=== PATIENT | female | born 1955 | race Caucasian/White ===

== ENCOUNTER 2018-01-22 13:05 | Inpatient (IN) ==
[2018-01-22] MEDS ORDERED: ALBUTEROL/IPRATROPIUM 3 ML NEB RESP TX STA (13:23)
[2018-01-22] MEDS ORDERED: ONDANSETRON 4 MG/2 ML VIAL IV STA (13:23)
[2018-01-22] MEDS ORDERED: SODIUM CHLORIDE 0.9% 1,000 ML IV STA (13:23)
[2018-01-22] MEDS ORDERED: methylPREDNISolone SOD SUC 125 MG/2 ML VIAL IV STA (13:23)
[2018-01-22 13:58] LABS: ABG Base Excess -7.2 MMOL/L (-2.5-2.5); ABG HCO3 18.5 MMOL/L (20-26); ABG Oxygen Saturation 92.6 % (95-100); ABG PCO2 59.3 MM HG (35-48); ABG PO2 73.6 MM HG (80-95); ABG TCO2 20.4 MMOL/L (23-27)
[2018-01-22 14:00] LABS: ABG PH 7.182 (7.35-7.45)
[2018-01-22] MEDS ORDERED: SODIUM BICARBONATE 50 MEQ/50 ML VIAL IV STA ×2 (14:08)
[2018-01-22 14:12] LABS: Basophils % 0.1 % (0.0-0.8); Hematocrit 38.9 VOL% (35.7-47.0); Hemoglobin 12.4 GM/DL (12.0-16.0); Immature Granulocytes % 1.1 %; Immature Granulocytes Absolute 0.12 #; Lymphocytes # 0.6 10*3/uL (1.4-4.0); Lymphocytes % 5.2 % (21.3-54.2); Mean Corpuscular HGB Conc 31.9 GM/DL (32-36); Mean Corpuscular Hemoglobin 32 PG (27-34); Mean Corpuscular Volume 100.3 FL (87-102); Mean Platelet Volume 11.7 FL (9.6-12.0); Monocytes # 0.6 10*3/uL (0.11-0.8); Neutrophils # 9.3 10*3/uL (1.4-7.4); Neutrophils % 87.6 % (38.7-73.9); Platelet Count 143 T/CUMM (130-400); Red Blood Count 3.88 MC/CUMM (3.8-5.5); Red Cell Distribution Width 12.5 % (9.3-17.3); White Blood Count 10.7 T/CUMM (4-12)
[2018-01-22 14:35] LABS: Acetaminophen < 2.0 UG/ML (10-30); Salicylate 3.9 MG/DL (2.8-20)
[2018-01-22 14:39] LABS: Lactic Acid 2.3 MMOL/L (0.4-2.0)
[2018-01-22 14:40] LABS: Alanine Aminotransferase 74 U/L (13-56); Albumin 3.4 G/DL (3.4-5.0); Alkaline Phosphatase 136 U/L (45-117); Aspartate Amino Transferase 112 U/L (0-37); Blood Urea Nitrogen 22 MG/DL (7-18); CKMB % 5.7 %; Calcium 7.8 MG/DL (8.5-10.1); Glucose 71 MG/DL (74-106); Osmolality,Calculated 281.3 MOS/KG (273-304); Potassium 4.5 MMOL/L (3.5-5.1); Sodium 141 MMOL/L (136-145); Total Protein 6.9 G/DL (6.4-8.3)
[2018-01-22] MEDS ORDERED: FUROSEMIDE 40 MG/4 ML VIAL IV STA (15:20)
[2018-01-22] MEDS ORDERED: DEXTROSE 50% 25 GM/50 ML VIAL IV STA (15:21)
[2018-01-22] MEDS ORDERED: DEXTROSE 50% 25 GM/50 ML SYRINGE IV ONE (15:41)
[2018-01-22] MEDS ORDERED: ALBUTEROL 2.5 MG/3 ML NEB RESP TX PRN (16:10)
[2018-01-22] MEDS ORDERED: ONDANSETRON 4 MG/2 ML VIAL IV PRN (16:10)
[2018-01-22] MEDS ORDERED: NALOXONE 0.4 MG/ML VIAL IV PRN (16:15)
[2018-01-22] MEDS ORDERED: DEXTROSE 50% 25 GM/50 ML VIAL IV PRN (16:17)
[2018-01-22] MEDS ORDERED: ENOXAPARIN 40 MG/0.4 ML SYRINGE SUBCUT SCH (16:30)
[2018-01-22] MEDS ORDERED: PANTOPRAZOLE 40 MG VIAL IV SCH (16:30)
[2018-01-22 17:06] LABS: Apearance,Urine CLEAR (Clear); Bacteria,Urine Occasional /HPF (Few); Bilirubin,Urine Negative (Negative); Blood, Urine Negative (Negative); Glucose,Urine (UA) Negative (Negative); Ketones,Urine Negative (Negative); Mucus,Urine Occasional /LPF (Occasional); Nitrite,Urine Negative (Negative); Protein,Urine Negative; RBC,Urine <1 /HPF (0-4); Squamous Epithelial Cell,Urine Occasional /HPF (0-10); Urine Color Straw (Yellow); Urine Specific Gravity 1.005 (1.001-1.035); Urine Urobilinogen < 2.0 EU/DL (0.2-1.0); WBC,Urine 1 /HPF (0-6)
[2018-01-22 17:14] LABS: Barbiturates Screen,Urine Negative (Negative); Benzodiazepines Screen,Urine Negative (Negative); Cannabinoid Screen,Urine Positive (Negative); Opiate Screen,Urine Positive (Negative); Phencyclidine Screen,Urine Negative (Negative)
[2018-01-22] MEDS: GABAPENTIN 400 MG CAPSULE PO SCH (20:29)
[2018-01-23 01:37] LABS: Albumin 3.5 G/DL (3.4-5.0); Bilirubin,Total 0.5 MG/DL (0.2-1.0); Calcium 8.1 MG/DL (8.5-10.1); Osmolality,Calculated 282.4 MOS/KG (273-304); Potassium 5.2 MMOL/L (3.5-5.1); Total Protein 6.9 G/DL (6.4-8.3)
[2018-01-23] MEDS: GABAPENTIN 400 MG CAPSULE PO SCH (08:48)
[2018-01-23] MEDS ORDERED: VENLAFAXINE 100 MG TABLET PO SCH (09:00)
[2018-01-23] MEDS ORDERED: CITALOPRAM 40 MG TABLET PO SCH (09:00)
[2018-01-23] MEDS ORDERED: ATORVASTATIN 40 MG TABLET PO SCH (09:00)
[2018-01-23] MEDS ORDERED: MONTELUKAST 10 MG TABLET PO SCH (09:00)
[2018-01-23 09:41] VITALS: BP 117/68
== END 2018-01-23 12:54 | disposition home or self-care (01) | DRG 917 ==
LOC: EDUNIT# → N.ED 13:05 → N.EDINP 16:10 → N.CC 16:57
PROVIDERS: ADMIT Internal Medicine; ATTEND Internal Medicine

== ENCOUNTER 2021-04-01 20:49 | Inpatient (IN) ==
[2021-04-01] MEDS ORDERED: ACETAMINOPHEN 500 MG TABLET PO STA (21:46)
[2021-04-01] MEDS ORDERED: SODIUM CHLORIDE 0.9% 1,000 ML IV STA (21:49)
[2021-04-01 21:53] LABS: Basophils # 0.1 10*3/uL (0.0-0.2); Basophils % 0.6 % (0.0-0.8); Eosinophils # 0.1 10*3/uL (0.0-0.87); Eosinophils % 0.6 % (0.00-10.9); Hematocrit 33.1 VOL% (35.7-47.0); Hemoglobin 10.2 GM/DL (12.0-16.0); Immature Granulocytes % 0.9 %; Immature Granulocytes Absolute 0.16 #; Lymphocytes % 16.3 % (21.3-54.2); Mean Corpuscular HGB Conc 30.8 GM/DL (32-36); Mean Corpuscular Volume 100.9 FL (87-102); Mean Platelet Volume 11.9 FL (9.6-12.0); Neutrophils % 76.6 % (38.7-73.9); Platelet Count 296 T/CUMM (130-400); Red Blood Count 3.28 MC/CUMM (3.8-5.5); Red Cell Distribution Width 13.8 % (9.3-17.3); White Blood Count 18.6 T/CUMM (4-12)
[2021-04-01] MEDS ORDERED: PANTOPRAZOLE 40 MG VIAL IV STA (21:56)
[2021-04-01 22:13] LABS: Bilirubin,Total 0.6 MG/DL (0.20-1.00); Calcium 8.6 MG/DL (8.5-10.1); Osmolality,Calculated 296.8 MOS/KG (273-304); Potassium 4.3 MMOL/L (3.5-5.1); Total Protein 6.1 G/DL (6.4-8.2)
[2021-04-01 22:16] LABS: PT Patient Result 11.5 SECS (10.5-12.0)
[2021-04-01 22:22] LABS: Partial Thromboplastin Time < 20.0 SECS (23.9-33.8)
[2021-04-01] MEDS ORDERED: MORPHINE 2 MG/1 ML SYRINGE IV STA (23:24)
[2021-04-01] MEDS ORDERED: PROMETHAZINE 25 MG TABLET PO STA (23:24)
[2021-04-02] MEDS ORDERED: PIPERACILLIN/TAZOBACTAM 3,375 MG in SODIUM CHLORIDE 0.9% 100 ML IV STA (00:50)
[2021-04-02] MEDS ORDERED: CIPROFLOXACIN INJ 400 MG/200 ML PREMIX IV SCH (01:00)
[2021-04-02] MEDS ORDERED: metroNIDAZOLE INJ 500 MG/100 ML PREMIX IV SCH (01:00)
[2021-04-02 01:24] LABS: Hematocrit 27.1 VOL% (35.7-47.0); Hemoglobin 8.5 GM/DL (12.0-16.0)
[2021-04-02] MEDS ORDERED: HYDROmorphone 2 MG/1 ML VIAL IV STA (02:34)
[2021-04-02] MEDS ORDERED: ONDANSETRON 4 MG/2 ML VIAL IV STA (02:35)
[2021-04-02] MEDS ORDERED: HYDROmorphone 2 MG/1 ML VIAL ONE (02:36)
[2021-04-02] MEDS ORDERED: ONDANSETRON 4 MG/2 ML VIAL ONE (02:36)
[2021-04-02] MEDS ORDERED: SODIUM CHLORIDE 0.9% 1,000 ML IV PRN (03:10)
[2021-04-02] MEDS ORDERED: DEXTROSE 50% 25 GM/50 ML VIAL IV PRN (03:16)
[2021-04-02] MEDS ORDERED: GLUCAGON 1 MG VIAL IM PRN (03:16)
[2021-04-02] MEDS: SODIUM CHLORIDE 0.9% 1,000 ML IV SCH (03:24)
[2021-04-02] MEDS: PANTOPRAZOLE INJ 200 MG in SODIUM CHLORIDE 0.9% 250 ML IV SCH (03:25)
[2021-04-02 04:31] LABS: Basophils % 0.4 % (0.0-0.8); Eosinophils % 0.4 % (0.00-10.9); Hematocrit 24.1 VOL% (35.7-47.0); Hemoglobin 7.4 GM/DL (12.0-16.0); Immature Granulocytes % 0.6 %; Immature Granulocytes Absolute 0.05 #; Lymphocytes # 1.8 10*3/uL (1.4-4.0); Lymphocytes % 21.2 % (21.3-54.2); Mean Corpuscular HGB Conc 30.7 GM/DL (32-36); Mean Corpuscular Volume 101.7 FL (87-102); Mean Platelet Volume 11.3 FL (9.6-12.0); Neutrophils % 71.4 % (38.7-73.9); Red Cell Distribution Width 13.6 % (9.3-17.3)
[2021-04-02 04:32] LABS: Red Blood Count 2.37 MC/CUMM (3.8-5.5); White Blood Count 8.4 T/CUMM (4-12)
[2021-04-02 04:33] LABS: Platelet Count 196 T/CUMM (130-400)
[2021-04-02 04:53] LABS: Albumin 2.4 G/DL (3.4-5.0); Bilirubin,Total 0.7 MG/DL (0.20-1.00); Calcium 7.1 MG/DL (8.5-10.1); Osmolality,Calculated 294.8 MOS/KG (273-304); Potassium 4.1 MMOL/L (3.5-5.1)
[2021-04-02] MEDS ORDERED: ALBUTEROL 2.5 MG/3 ML NEB RESP TX PRN ×2 (07:42→15:27)
[2021-04-02] MEDS: LORazepam 2 MG/1 ML VIAL IV PRN ×4 (08:01→20:59)
[2021-04-02] MEDS ORDERED: ACETAMINOPHEN 500 MG TABLET PO ONE (13:27)
[2021-04-02 14:00] LABS: Hematocrit 28.3 VOL% (35.7-47.0); Hemoglobin 9.2 GM/DL (12.0-16.0)
[2021-04-02] MEDS ORDERED: LACTATED RINGERS 1,000 ML IV SCH (14:30)
[2021-04-02] MEDS ORDERED: propofoL 200 MG/20 ML VIAL IV ONE ×3 (14:55→15:41)
[2021-04-02] MEDS ORDERED: LIDOCAINE 2% 5 ML VIAL ONE (14:55)
[2021-04-02] MEDS ORDERED: fentaNYL 100 MCG/2 ML VIAL ONE (15:11)
[2021-04-02] MEDS ORDERED: EPINEPHrine 1 MG/10 ML SYRINGE ONE (15:19)
[2021-04-02] MEDS ORDERED: MIDAZOLAM 2 MG/2 ML VIAL ONE (15:19)
[2021-04-02] MEDS ORDERED: METOCLOPRAMIDE 10 MG/2 ML VIAL ONE (15:20)
[2021-04-02] MEDS: PIPERACILLIN/TAZOBACTAM 3,375 MG in SODIUM CHLORIDE 0.9% 100 ML IV SCH ×2 (15:22→19:10)
[2021-04-02] MEDS ORDERED: FUROSEMIDE 20 MG/2 ML VIAL ONE (15:51)
[2021-04-02] MEDS: ALBUTEROL/IPRATROPIUM 3 ML NEB RESP TX PRN (16:20)
[2021-04-02] MEDS ORDERED: VENLAFAXINE 100 MG TABLET PO SCH (21:00)
[2021-04-02] MEDS: GABAPENTIN 400 MG CAPSULE PO SCH (22:16)
[2021-04-02 22:17] LABS: Hematocrit 27.8 VOL% (35.7-47.0); Hemoglobin 8.8 GM/DL (12.0-16.0)
[2021-04-02] MEDS: ATORVASTATIN 40 MG TABLET PO SCH (22:17)
[2021-04-02] MEDS: MONTELUKAST 10 MG TABLET PO SCH (22:17)
[2021-04-02] MEDS: LOSARTAN 25 MG TABLET PO SCH (22:17)
[2021-04-02] MEDS: carvediloL 6.25 MG TABLET PO SCH (22:17)
[2021-04-03] MEDS: PIPERACILLIN/TAZOBACTAM 3,375 MG in SODIUM CHLORIDE 0.9% 100 ML IV SCH ×3 (01:55→17:44)
[2021-04-03 06:09] LABS: Basophils # 0.1 10*3/uL (0.0-0.2); Basophils % 0.9 % (0.0-0.8); Eosinophils # 0.1 10*3/uL (0.0-0.87); Hematocrit 26.3 VOL% (35.7-47.0); Hemoglobin 8.5 GM/DL (12.0-16.0); Immature Granulocytes % 0.5 %; Immature Granulocytes Absolute 0.03 #; Lymphocytes # 1.6 10*3/uL (1.4-4.0); Lymphocytes % 28.9 % (21.3-54.2); Mean Corpuscular HGB Conc 32.3 GM/DL (32-36); Mean Platelet Volume 11.8 FL (9.6-12.0); Monocytes % 8.2 % (1.7-12.7); Neutrophils % 59.5 % (38.7-73.9); Platelet Count 183 T/CUMM (130-400); Red Blood Count 2.63 MC/CUMM (3.8-5.5); Red Cell Distribution Width 14.5 % (9.3-17.3); White Blood Count 5.6 T/CUMM (4-12)
[2021-04-03 06:40] LABS: Albumin 2.6 G/DL (3.4-5.0); Bilirubin,Total 0.8 MG/DL (0.20-1.00); Calcium 8.2 MG/DL (8.5-10.1); Total Protein 5.6 G/DL (6.4-8.2)
[2021-04-03] MEDS: SODIUM CHLORIDE 0.9% 1,000 ML IV SCH ×5 (09:26→21:53)
[2021-04-03] MEDS: carvediloL 6.25 MG TABLET PO SCH ×2 (09:32→21:51)
[2021-04-03] MEDS: LOSARTAN 25 MG TABLET PO SCH ×2 (09:32→21:52)
[2021-04-03] MEDS: GABAPENTIN 400 MG CAPSULE PO SCH ×3 (09:32→21:00)
[2021-04-03] MEDS: atenoloL 25 MG TABLET PO SCH (09:32)
[2021-04-03] MEDS ORDERED: ACETAMINOPHEN 500 MG TABLET PO ONE (09:38)
[2021-04-03] MEDS: PANTOPRAZOLE INJ 200 MG in SODIUM CHLORIDE 0.9% 250 ML IV SCH (10:40)
[2021-04-03 12:31] LABS: Hematocrit 25.2 VOL% (35.7-47.0); Hemoglobin 8.1 GM/DL (12.0-16.0)
[2021-04-03 12:53] LABS: High Sensitive Troponin I* 4511.7 ng/L (0-54)
[2021-04-03] MEDS ORDERED: SODIUM CHLORIDE 0.9% 500 ML IV ONE (15:59)
[2021-04-03 17:59] LABS: Hematocrit 25.5 VOL% (35.7-47.0); Hemoglobin 8.1 GM/DL (12.0-16.0)
[2021-04-03] MEDS: ATORVASTATIN 40 MG TABLET PO SCH (21:01)
[2021-04-03] MEDS: MONTELUKAST 10 MG TABLET PO SCH (21:01)
[2021-04-03] MEDS: VENLAFAXINE 100 MG TABLET PO SCH (22:14)
[2021-04-04] MEDS: PIPERACILLIN/TAZOBACTAM 3,375 MG in SODIUM CHLORIDE 0.9% 100 ML IV SCH ×3 (00:59→17:27)
[2021-04-04] MEDS: PANTOPRAZOLE INJ 200 MG in SODIUM CHLORIDE 0.9% 250 ML IV SCH (01:06)
[2021-04-04] MEDS: SODIUM CHLORIDE 0.9% 1,000 ML IV SCH ×3 (01:07→18:13)
[2021-04-04 03:03] LABS: Basophils # 0.1 10*3/uL (0.0-0.2); Basophils % 0.9 % (0.0-0.8); Eosinophils # 0.2 10*3/uL (0.0-0.87); Eosinophils % 2.7 % (0.00-10.9); Hematocrit 24.1 VOL% (35.7-47.0); Hemoglobin 7.6 GM/DL (12.0-16.0); Immature Granulocytes % 0.5 %; Immature Granulocytes Absolute 0.03 #; Lymphocytes # 2.2 10*3/uL (1.4-4.0); Mean Corpuscular HGB Conc 31.5 GM/DL (32-36); Mean Corpuscular Volume 97.2 FL (87-102); Mean Platelet Volume 10.9 FL (9.6-12.0); Monocytes % 5.8 % (1.7-12.7); Neutrophils % 50.1 % (38.7-73.9); Platelet Count 148 T/CUMM (130-400); Red Blood Count 2.48 MC/CUMM (3.8-5.5); Red Cell Distribution Width 14.1 % (9.3-17.3); White Blood Count 5.5 T/CUMM (4-12)
[2021-04-04 03:23] LABS: Alanine Aminotransferase 12 U/L (13-56); Albumin 2.7 G/DL (3.4-5.0); Alkaline Phosphatase 66 U/L (45-117); Aspartate Amino Transferase 25 U/L (0-37); Bilirubin,Total < 0.39 MG/DL (0.20-1.00); Blood Urea Nitrogen 14 MG/DL (7-18); Carbon Dioxide 20 MMOL/L (21-32); Estimated Glom Filtration Rate 82 ML/MIN; Glucose 96 MG/DL (74-106); Osmolality,Calculated 281.3 MOS/KG (273-304); Potassium 3.5 MMOL/L (3.5-5.1); Sodium 141 MMOL/L (136-145); Total Protein 5.3 G/DL (6.4-8.2)
[2021-04-04] MEDS: GABAPENTIN 400 MG CAPSULE PO SCH ×3 (08:42→20:14)
[2021-04-04] MEDS: LOSARTAN 25 MG TABLET PO SCH ×2 (08:42→20:45)
[2021-04-04] MEDS: carvediloL 6.25 MG TABLET PO SCH ×2 (11:10→20:45)
[2021-04-04 11:47] LABS: Hematocrit 24.2 VOL% (35.7-47.0); Hemoglobin 7.7 GM/DL (12.0-16.0)
[2021-04-04] MEDS: MONTELUKAST 10 MG TABLET PO SCH (20:14)
[2021-04-04] MEDS: ATORVASTATIN 40 MG TABLET PO SCH (20:14)
[2021-04-04] MEDS: PANTOPRAZOLE 40 MG VIAL IV SCH (20:15)
[2021-04-04] MEDS: VENLAFAXINE 100 MG TABLET PO SCH (20:46)
[2021-04-04] MEDS: ONDANSETRON 4 MG/2 ML VIAL IV PRN (21:55)
[2021-04-05] MEDS: PIPERACILLIN/TAZOBACTAM 3,375 MG in SODIUM CHLORIDE 0.9% 100 ML IV SCH ×3 (00:05→23:00)
[2021-04-05] MEDS ORDERED: SODIUM CHLORIDE 0.9% 1,000 ML IV PRN ×3 (03:24→19:47)
[2021-04-05] MEDS: SODIUM CHLORIDE 0.9% 1,000 ML IV SCH ×3 (03:30→17:46)
[2021-04-05 03:42] LABS: Basophils # 0.1 10*3/uL (0.0-0.2); Basophils % 0.7 % (0.0-0.8); Eosinophils # 0.1 10*3/uL (0.0-0.87); Eosinophils % 1.3 % (0.00-10.9); Hematocrit 20.1 VOL% (35.7-47.0); Immature Granulocytes % 0.8 %; Immature Granulocytes Absolute 0.08 #; Lymphocytes % 18.9 % (21.3-54.2); Mean Corpuscular HGB Conc 28.9 GM/DL (32-36); Mean Corpuscular Volume 109.8 FL (87-102); Mean Platelet Volume 11.3 FL (9.6-12.0); Monocytes % 5.4 % (1.7-12.7); Neutrophils % 72.9 % (38.7-73.9); Platelet Count 193 T/CUMM (130-400); Red Blood Count 1.83 MC/CUMM (3.8-5.5); Red Cell Distribution Width 14.2 % (9.3-17.3); White Blood Count 10.4 T/CUMM (4-12)
[2021-04-05 03:45] LABS: Hemoglobin 5.8 GM/DL (12.0-16.0)
[2021-04-05 03:55] LABS: Calcium 7.3 MG/DL (8.5-10.1); Potassium 4.1 MMOL/L (3.5-5.1)
[2021-04-05] MEDS ORDERED: NOREPINEPHRINE 4 MG/4 ML VIAL IV ONE ×2 (04:31→04:32)
[2021-04-05] MEDS: MORPHINE 2 MG/1 ML SYRINGE IV PRN (05:36)
[2021-04-05] MEDS ORDERED: SODIUM BICARBONATE 50 MEQ/50 ML VIAL IV ONE (06:40)
[2021-04-05] MEDS ORDERED: CALCIUM GLUCONATE 1,000 MG in SODIUM CHLORIDE 0.9% 100 ML IV ONE ×2 (06:40→09:00)
[2021-04-05] MEDS: LORazepam 2 MG/1 ML VIAL IV PRN ×3 (09:29→23:49)
[2021-04-05] MEDS: PANTOPRAZOLE 40 MG VIAL IV SCH (09:43)
[2021-04-05] MEDS: PANTOPRAZOLE INJ 200 MG in SODIUM CHLORIDE 0.9% 250 ML IV SCH (12:42)
[2021-04-05 12:55] LABS: Hematocrit 25.2 VOL% (35.7-47.0); Hemoglobin 8.1 GM/DL (12.0-16.0)
[2021-04-05] MEDS ORDERED: LORazepam 2 MG/1 ML VIAL ONE (13:13)
[2021-04-05] MEDS: atenoloL 25 MG TABLET PO SCH (14:39)
[2021-04-05] MEDS: carvediloL 6.25 MG TABLET PO SCH ×2 (14:39→20:18)
[2021-04-05] MEDS: GABAPENTIN 400 MG CAPSULE PO SCH ×3 (14:39→20:19)
[2021-04-05] MEDS: LOSARTAN 25 MG TABLET PO SCH ×2 (14:39→20:18)
[2021-04-05] MEDS: FLUCONAZOLE INJ 100 MG/50 ML PREMIX IV SCH (16:38)
[2021-04-05 17:18] LABS: Hematocrit 23.3 VOL% (35.7-47.0); Hemoglobin 7.4 GM/DL (12.0-16.0)
[2021-04-05] MEDS ORDERED: FUROSEMIDE 40 MG/4 ML VIAL IV ONE (17:36)
[2021-04-05] MEDS ORDERED: LACTATED RINGERS 1,000 ML IV ONE (19:00)
[2021-04-05] MEDS ORDERED: HEPARIN/NACL 0.9% 2 UNITS/ML 6,000 UNIT/3,000 ML BAG IV ONE (19:55)
[2021-04-05] MEDS: VENLAFAXINE 100 MG TABLET PO SCH (20:18)
[2021-04-05] MEDS: ATORVASTATIN 40 MG TABLET PO SCH (20:19)
[2021-04-05] MEDS: MONTELUKAST 10 MG TABLET PO SCH (20:19)
[2021-04-05] MEDS ORDERED: HEPARIN/NACL 0.9% 2 UNITS/ML 2,000 UNIT/1,000 ML BAG IV ONE ×2 (21:26→21:29)
[2021-04-05] MEDS ORDERED: propofoL 200 MG/20 ML VIAL IV ONE (22:55)
[2021-04-05] MEDS ORDERED: LIDOCAINE 2% 5 ML VIAL ONE (22:55)
[2021-04-05] MEDS ORDERED: PHENYLEPHRINE 1 MG/10 ML SYRINGE IV ONE (22:55)
[2021-04-05] MEDS ORDERED: SODIUM CHLORIDE 0.9% 1,000 ML IV ONE (22:56)
[2021-04-05] MEDS ORDERED: SODIUM CHLORIDE 0.9% 100 ML IV ONE (22:56)
[2021-04-05] MEDS ORDERED: MIDAZOLAM 2 MG/2 ML VIAL ONE (22:56)
[2021-04-05] MEDS ORDERED: KETAMINE 500 MG/10 ML VIAL ONE (22:56)
[2021-04-05] MEDS ORDERED: GLYCOPYRROLATE 0.4 MG/2 ML VIAL ONE (22:56)
[2021-04-05] MEDS ORDERED: FUROSEMIDE 40 MG/4 ML VIAL ONE (23:39)
[2021-04-05 23:56] LABS: Hematocrit 26.9 VOL% (35.7-47.0); Hemoglobin 8.3 GM/DL (12.0-16.0)
[2021-04-06] MEDS: SODIUM CHLORIDE 0.9% 1,000 ML IV SCH (01:40)
[2021-04-06 05:42] LABS: Basophils % 0.4 % (0.0-0.8); Eosinophils # 0.1 10*3/uL (0.0-0.87); Eosinophils % 1.2 % (0.00-10.9); Hematocrit 27.8 VOL% (35.7-47.0); Hemoglobin 9.1 GM/DL (12.0-16.0); Immature Granulocytes % 0.6 %; Immature Granulocytes Absolute 0.05 #; Mean Corpuscular HGB Conc 32.7 GM/DL (32-36); Mean Corpuscular Volume 95.2 FL (87-102); Mean Platelet Volume 11.9 FL (9.6-12.0); Monocytes % 5.7 % (1.7-12.7); NRBC # 0.02 10*3/uL; Neutrophils % 80.1 % (38.7-73.9); Red Cell Distribution Width 14.6 % (9.3-17.3); White Blood Count 8.5 T/CUMM (4-12)
[2021-04-06 05:43] LABS: Platelet Count 112 T/CUMM (130-400); Red Blood Count 2.92 MC/CUMM (3.8-5.5)
[2021-04-06 05:53] LABS: Albumin 2.4 G/DL (3.4-5.0); Bilirubin,Total 0.6 MG/DL (0.20-1.00); Osmolality,Calculated 286.8 MOS/KG (273-304); Potassium 3.5 MMOL/L (3.5-5.1)
[2021-04-06] MEDS: PIPERACILLIN/TAZOBACTAM 3,375 MG in SODIUM CHLORIDE 0.9% 100 ML IV SCH ×2 (06:42→06:43)
[2021-04-06] MEDS ORDERED: LORazepam 2 MG/1 ML VIAL ONE ×2 (08:14→15:59)
[2021-04-06] MEDS: LORazepam 2 MG/1 ML VIAL IV PRN (08:20)
[2021-04-06] MEDS: GABAPENTIN 400 MG CAPSULE PO SCH ×3 (08:34→21:12)
[2021-04-06] MEDS: carvediloL 6.25 MG TABLET PO SCH (08:34)
[2021-04-06] MEDS: atenoloL 25 MG TABLET PO SCH (08:34)
[2021-04-06] MEDS: LOSARTAN 25 MG TABLET PO SCH (08:34)
[2021-04-06] MEDS: MORPHINE 2 MG/1 ML SYRINGE IV PRN (09:54)
[2021-04-06] MEDS: ONDANSETRON 4 MG/2 ML VIAL IV PRN (09:55)
[2021-04-06] MEDS ORDERED: MAGNESIUM SULF RIDER 2 GM/50 ML PREMIX IV PRN (10:53)
[2021-04-06] MEDS ORDERED: MAGNESIUM SULF RIDER 4 GM/100 ML PREMIX IV PRN (10:53)
[2021-04-06] MEDS: LACTATED RINGERS 1,000 ML IV SCH (11:00)
[2021-04-06 11:13] LABS: Hematocrit 22.5 VOL% (35.7-47.0); Hemoglobin 7.5 GM/DL (12.0-16.0)
[2021-04-06] MEDS ORDERED: MIDAZOLAM 2 MG/2 ML VIAL ONE (11:56)
[2021-04-06] MEDS ORDERED: PHENYLEPHRINE 10 MG/1 ML VIAL IV ONE (11:58)
[2021-04-06] MEDS ORDERED: SODIUM CHLORIDE 0.9% 250 ML IV ONE (12:07)
[2021-04-06] MEDS ORDERED: ETOMIDATE 20 MG/10 ML VIAL IV ONE (12:07)
[2021-04-06] MEDS ORDERED: PHENYLEPHRINE 1 MG/10 ML SYRINGE IV ONE (12:07)
[2021-04-06] MEDS ORDERED: propofoL 200 MG/20 ML VIAL IV ONE ×2 (12:07→12:56)
[2021-04-06] MEDS ORDERED: LIDOCAINE 2% 5 ML VIAL ONE (12:07)
[2021-04-06] MEDS ORDERED: SODIUM CHLORIDE 0.9% 1,000 ML IV PRN ×3 (12:19→15:40)
[2021-04-06] MEDS: METOPROLOL TARTRATE 5 MG/5 ML VIAL IV SCH ×2 (12:34→18:02)
[2021-04-06] MEDS ORDERED: VECURONIUM 10 MG VIAL IV ONE ×2 (13:31→15:08)
[2021-04-06] MEDS ORDERED: MIDAZOLAM 10 MG/2 ML VIAL ONE (13:32)
[2021-04-06] MEDS: NOREPINEPHRINE 8 MG in SODIUM CHLORIDE 0.9% 242 ML IV PRN (13:43)
[2021-04-06] MEDS ORDERED: HEPARIN/NACL 0.9% 2 UNITS/ML 1,000 UNIT/500 ML BAG IV ONE (13:54)
[2021-04-06] MEDS ORDERED: ALBUMIN 5% 25.0 GM/500 ML VIAL IV ONE (14:26)
[2021-04-06 15:09] LABS: Basophils % 0.2 % (0.0-0.8); Eosinophils # 0.2 10*3/uL (0.0-0.87); Eosinophils % 2.1 % (0.00-10.9); Immature Granulocytes % 0.7 %; Immature Granulocytes Absolute 0.07 #; Lymphocytes # 2.5 10*3/uL (1.4-4.0); Lymphocytes % 24.3 % (21.3-54.2); Mean Corpuscular HGB Conc 32.4 GM/DL (32-36); Mean Corpuscular Volume 94.7 FL (87-102); Mean Platelet Volume 11.2 FL (9.6-12.0); Monocytes % 6.9 % (1.7-12.7); NRBC # 0.02 10*3/uL; Neutrophils % 65.8 % (38.7-73.9); Platelet Count 104 T/CUMM (130-400); Red Cell Distribution Width 14.9 % (9.3-17.3); White Blood Count 10.5 T/CUMM (4-12)
[2021-04-06 15:15] LABS: Hematocrit 14.2 VOL% (35.7-47.0); Hemoglobin 4.6 GM/DL (12.0-16.0)
[2021-04-06 15:30] LABS: Albumin 2.5 G/DL (3.4-5.0); Bilirubin,Total 0.4 MG/DL (0.20-1.00); Calcium 7.4 MG/DL (8.5-10.1); Osmolality,Calculated 292.6 MOS/KG (273-304); Potassium 3.2 MMOL/L (3.5-5.1)
[2021-04-06] MEDS ORDERED: CALCIUM CHLORIDE 1,000 MG/10 ML VIAL IV ONE (15:44)
[2021-04-06] MEDS ORDERED: SEVOFLURANE 1 UNIT/15 MINUTE INH ONE (15:44)
[2021-04-06] MEDS ORDERED: SODIUM CHLORIDE 0.9% 1,000 ML IV ONE (15:44)
[2021-04-06] MEDS ORDERED: fentaNYL 100 MCG/2 ML VIAL ONE (15:45)
[2021-04-06] MEDS ORDERED: MORPHINE 10 MG/1 ML VIAL ONE (15:54)
[2021-04-06] MEDS: PANTOPRAZOLE INJ 200 MG in SODIUM CHLORIDE 0.9% 250 ML IV SCH (16:44)
[2021-04-06] MEDS ORDERED: POTASSIUM CHLORIDE RIDER 20 MEQ/100 ML PREMIX IV ONE (16:53)
[2021-04-06] MEDS: MEROPENEM 500 MG in SODIUM CHLORIDE 0.9% 100 ML IV SCH ×2 (16:56→23:28)
[2021-04-06] MEDS: FLUCONAZOLE INJ 100 MG/50 ML PREMIX IV SCH (16:57)
[2021-04-06 16:58] LABS: Basophils % 0.2 % (0.0-0.8); Eosinophils # 0.1 10*3/uL (0.0-0.87); Eosinophils % 2.5 % (0.00-10.9); Hematocrit 21.2 VOL% (35.7-47.0); Immature Granulocytes % 0.6 %; Immature Granulocytes Absolute 0.03 #; Lymphocytes # 0.9 10*3/uL (1.4-4.0); Lymphocytes % 18.6 % (21.3-54.2); Mean Corpuscular HGB Conc 33.5 GM/DL (32-36); Mean Corpuscular Volume 94.2 FL (87-102); Mean Platelet Volume 11.6 FL (9.6-12.0); NRBC # 0.02 10*3/uL; Neutrophils % 71.1 % (38.7-73.9); Red Blood Count 2.25 MC/CUMM (3.8-5.5); Red Cell Distribution Width 14.5 % (9.3-17.3); White Blood Count 4.9 T/CUMM (4-12)
[2021-04-06 17:01] LABS: Hemoglobin 7.1 GM/DL (12.0-16.0); Platelet Count 66 T/CUMM (130-400)
[2021-04-06] MEDS: POTASSIUM CHLORIDE RIDER 20 MEQ/100 ML PREMIX IV PRN ×2 (17:53→23:03)
[2021-04-06] MEDS: MONTELUKAST 10 MG TABLET PO SCH (21:12)
[2021-04-06] MEDS: VENLAFAXINE 100 MG TABLET PO SCH (21:12)
[2021-04-07] MEDS: METOPROLOL TARTRATE 5 MG/5 ML VIAL IV SCH ×4 (00:07→18:39)
[2021-04-07] MEDS: MEROPENEM 500 MG in SODIUM CHLORIDE 0.9% 100 ML IV SCH ×4 (05:17→23:56)
[2021-04-07 06:45] LABS: Bilirubin,Urine Negative (Negative); Blood, Urine Small mg/dL (Negative); Glucose,Urine (UA) Negative (Negative); Ketones,Urine Negative (Negative); Mucus,Urine Occasional /LPF (Occasional); Nitrite,Urine Negative (Negative); Protein,Urine 30 MG/DL; RBC,Urine 22 /HPF (0-4); Squamous Epithelial Cell,Urine Occasional /HPF (0-10); Urine Appearance CLEAR (Clear); Urine Color Yellow (Yellow); Urine Urobilinogen < 2.0 EU/DL (0.2-1.0)
[2021-04-07] MEDS: GABAPENTIN 400 MG CAPSULE PO SCH ×3 (08:18→21:07)
[2021-04-07 09:56] LABS: ABG Base Excess -1.9 MMOL/L (-2.5-2.5); ABG HCO3 22.8 MMOL/L (20-26); ABG Oxygen Saturation 99.6 % (95-100); ABG PCO2 43.3 MM HG (35-48); ABG PH 7.347 (7.35-7.45); ABG TCO2 21.7 MMOL/L (23-27)
[2021-04-07] MEDS ORDERED: EPINEPHrine 1 MG/ML VIAL ONE (10:18)
[2021-04-07 10:37] LABS: Basophils % 0.4 % (0.0-0.8); Eosinophils # 0.2 10*3/uL (0.0-0.87); Eosinophils % 3.3 % (0.00-10.9); Hematocrit 30.9 VOL% (35.7-47.0); Immature Granulocytes % 0.6 %; Immature Granulocytes Absolute 0.03 #; Lymphocytes # 0.6 10*3/uL (1.4-4.0); Mean Corpuscular HGB Conc 32.4 GM/DL (32-36); Mean Corpuscular Volume 91.4 FL (87-102); Mean Platelet Volume 11.5 FL (9.6-12.0); Monocytes % 6.8 % (1.7-12.7); NRBC # 0.02 10*3/uL; Neutrophils % 76.9 % (38.7-73.9); Red Blood Count 3.38 MC/CUMM (3.8-5.5); Red Cell Distribution Width 15.9 % (9.3-17.3); White Blood Count 4.9 T/CUMM (4-12)
[2021-04-07 10:39] LABS: Platelet Count 64 T/CUMM (130-400)
[2021-04-07 11:01] LABS: Osmolality,Calculated 292.3 MOS/KG (273-304); Potassium 3.5 MMOL/L (3.5-5.1)
[2021-04-07] MEDS: LACTATED RINGERS 1,000 ML IV SCH (11:05)
[2021-04-07] MEDS: POTASSIUM CHLORIDE RIDER 20 MEQ/100 ML PREMIX IV PRN (12:26)
[2021-04-07] MEDS: PANTOPRAZOLE INJ 200 MG in SODIUM CHLORIDE 0.9% 250 ML IV SCH (16:11)
[2021-04-07] MEDS: FLUCONAZOLE INJ 100 MG/50 ML PREMIX IV SCH (16:11)
[2021-04-07] MEDS: POTASSIUM CHLORIDE RIDER 10 MEQ/100 ML PREMIX IV PRN (16:46)
[2021-04-07 20:59] LABS: Hematocrit 30.7 VOL% (35.7-47.0); Hemoglobin 9.8 GM/DL (12.0-16.0)
[2021-04-07] MEDS: MONTELUKAST 10 MG TABLET PO SCH (21:07)
[2021-04-07] MEDS: VENLAFAXINE 100 MG TABLET PO SCH (21:07)
[2021-04-07] MEDS: NOREPINEPHRINE 8 MG in SODIUM CHLORIDE 0.9% 242 ML IV PRN (22:48)
[2021-04-08] MEDS: METOPROLOL TARTRATE 5 MG/5 ML VIAL IV SCH ×2 (00:26→06:10)
[2021-04-08 04:07] LABS: ABG Base Excess -2.4 MMOL/L (-2.5-2.5); ABG HCO3 22.4 MMOL/L (20-26); ABG Oxygen Saturation 99.2 % (95-100); ABG PCO2 43.9 MM HG (35-48); ABG PH 7.337 (7.35-7.45); ABG TCO2 20.7 MMOL/L (23-27)
[2021-04-08 04:10] LABS: Basophils % 0.4 % (0.0-0.8); Eosinophils # 0.3 10*3/uL (0.0-0.87); Eosinophils % 3.6 % (0.00-10.9); Hematocrit 30.6 VOL% (35.7-47.0); Hemoglobin 9.9 GM/DL (12.0-16.0); Immature Granulocytes % 0.4 %; Immature Granulocytes Absolute 0.03 #; Lymphocytes % 13.4 % (21.3-54.2); Mean Corpuscular HGB Conc 32.4 GM/DL (32-36); Mean Corpuscular Volume 92.2 FL (87-102); Mean Platelet Volume 12.7 FL (9.6-12.0); Monocytes % 5.8 % (1.7-12.7); NRBC # 0.02 10*3/uL; Neutrophils % 76.4 % (38.7-73.9); Platelet Count 70 T/CUMM (130-400); Red Blood Count 3.32 MC/CUMM (3.8-5.5); Red Cell Distribution Width 16.5 % (9.3-17.3); White Blood Count 7.7 T/CUMM (4-12)
[2021-04-08 04:37] LABS: Hypochromasia 1+; Microcytosis 1+; Platelet Estimate Decreased
[2021-04-08 04:38] LABS: Potassium 3.5 MMOL/L (3.5-5.1)
[2021-04-08] MEDS: MEROPENEM 500 MG in SODIUM CHLORIDE 0.9% 100 ML IV SCH ×4 (05:19→23:10)
[2021-04-08] MEDS: POTASSIUM CHLORIDE RIDER 20 MEQ/100 ML PREMIX IV PRN (05:24)
[2021-04-08] MEDS: POTASSIUM CHLORIDE RIDER 10 MEQ/100 ML PREMIX IV PRN (07:50)
[2021-04-08] MEDS: GABAPENTIN 400 MG CAPSULE PO SCH ×3 (09:33→22:31)
[2021-04-08] MEDS: LACTATED RINGERS 1,000 ML IV SCH (11:10)
[2021-04-08] MEDS: MORPHINE 2 MG/1 ML SYRINGE IV PRN ×4 (11:15→23:30)
[2021-04-08] MEDS: ONDANSETRON 4 MG/2 ML VIAL IV PRN (11:15)
[2021-04-08 12:22] LABS: ABG Base Excess -2.8 MMOL/L (-2.5-2.5); ABG Oxygen Saturation 93.1 % (95-100); ABG PCO2 45.1 MM HG (35-48); ABG PH 7.323 (7.35-7.45); ABG PO2 71.5 MM HG (80-95); ABG TCO2 21.2 MMOL/L (23-27)
[2021-04-08] MEDS: ALBUTEROL/IPRATROPIUM 3 ML NEB RESP TX PRN (13:01)
[2021-04-08] MEDS ORDERED: METOPROLOL TARTRATE 5 MG/5 ML VIAL IV ONE (13:35)
[2021-04-08] MEDS ORDERED: MORPHINE 2 MG/1 ML SYRINGE IV ONE (14:15)
[2021-04-08] MEDS ORDERED: METOPROLOL TARTRATE 5 MG/5 ML VIAL IV PRN (15:01)
[2021-04-08] MEDS: FLUCONAZOLE INJ 100 MG/50 ML PREMIX IV SCH (15:22)
[2021-04-08] MEDS: hydrALAZINE 20 MG/1 ML VIAL IV PRN (18:07)
[2021-04-08] MEDS: LORazepam 2 MG/1 ML VIAL IV PRN (19:48)
[2021-04-08] MEDS: PANTOPRAZOLE 40 MG VIAL IV SCH (21:30)
[2021-04-08] MEDS: VENLAFAXINE 100 MG TABLET PO SCH (22:31)
[2021-04-08] MEDS: MONTELUKAST 10 MG TABLET PO SCH (22:32)
[2021-04-08] MEDS: BUDESONIDE/FORMOTEROL 160-4.5 INHALER 6 GM INH SCH (22:37)
[2021-04-09] MEDS ORDERED: MORPHINE 2 MG/1 ML SYRINGE IV PRN (02:38)
[2021-04-09] MEDS: LORazepam 2 MG/1 ML VIAL IV PRN (02:45)
[2021-04-09 03:19] LABS: Basophils % 0.4 % (0.0-0.8); Eosinophils # 0.3 10*3/uL (0.0-0.87); Eosinophils % 3.5 % (0.00-10.9); Hematocrit 33.1 VOL% (35.7-47.0); Hemoglobin 10.2 GM/DL (12.0-16.0); Immature Granulocytes % 0.9 %; Immature Granulocytes Absolute 0.07 #; Lymphocytes # 0.8 10*3/uL (1.4-4.0); Lymphocytes % 10.4 % (21.3-54.2); Mean Corpuscular HGB Conc 30.8 GM/DL (32-36); Mean Corpuscular Volume 94.6 FL (87-102); Mean Platelet Volume 11.8 FL (9.6-12.0); Monocytes % 7.1 % (1.7-12.7); Neutrophils % 77.7 % (38.7-73.9); Platelet Count 100 T/CUMM (130-400); White Blood Count 7.5 T/CUMM (4-12)
[2021-04-09 03:29] LABS: Calcium 8.1 MG/DL (8.5-10.1); Osmolality,Calculated 297.9 MOS/KG (273-304); Potassium 3.4 MMOL/L (3.5-5.1)
[2021-04-09] MEDS: MEROPENEM 500 MG in SODIUM CHLORIDE 0.9% 100 ML IV SCH (05:15)
[2021-04-09] MEDS: POTASSIUM CHLORIDE RIDER 20 MEQ/100 ML PREMIX IV PRN (05:16)
[2021-04-09 07:16] LABS: ABG Base Excess -0.8 MMOL/L (-2.5-2.5); ABG HCO3 23.7 MMOL/L (20-26); ABG Oxygen Saturation 91.4 % (95-100); ABG PH 7.388 (7.35-7.45); ABG PO2 62.8 MM HG (80-95); ABG TCO2 21.8 MMOL/L (23-27)
[2021-04-09] MEDS: POTASSIUM CHLORIDE RIDER 10 MEQ/100 ML PREMIX IV PRN (07:23)
[2021-04-09] MEDS ORDERED: DEXTROSE 5% 1,000 ML IV SCH (08:30)
[2021-04-09] MEDS: HYDROmorphone 2 MG/1 ML VIAL IV PRN ×3 (10:22→23:21)
[2021-04-09] MEDS: GABAPENTIN 400 MG CAPSULE PO SCH ×3 (10:41→23:20)
[2021-04-09] MEDS: cefTRIAXone 1,000 MG in SODIUM CHLORIDE 0.9% 100 ML IV SCH (10:47)
[2021-04-09] MEDS: PANTOPRAZOLE 40 MG VIAL IV SCH ×2 (10:49→20:37)
[2021-04-09] MEDS: BUDESONIDE/FORMOTEROL 160-4.5 INHALER 6 GM INH SCH ×2 (10:53→21:50)
[2021-04-09] MEDS: PROMETHAZINE 25 MG/1 ML VIAL IM SCH ×3 (11:00→23:10)
[2021-04-09] MEDS: fentaNYL 100 MCG/HR PATCH TRANSDERM SCH (11:03)
[2021-04-09] MEDS: METOPROLOL TARTRATE 5 MG/5 ML VIAL IV SCH ×3 (12:05→23:30)
[2021-04-09] MEDS: hydrALAZINE 20 MG/1 ML VIAL IV PRN (16:18)
[2021-04-09] MEDS: DEXT 5% NACL 0.45% KCL 20 MEQ 20 MEQ/1,000 ML BAG IV SCH (17:24)
[2021-04-09] MEDS: VENLAFAXINE 100 MG TABLET PO SCH (23:20)
[2021-04-09] MEDS: MONTELUKAST 10 MG TABLET PO SCH (23:20)
[2021-04-10] MEDS: PROMETHAZINE 25 MG/1 ML VIAL IM SCH ×4 (04:10→22:47)
[2021-04-10] MEDS: HYDROmorphone 2 MG/1 ML VIAL IV PRN ×5 (04:20→22:46)
[2021-04-10 04:30] LABS: Basophils % 0.5 % (0.0-0.8); Eosinophils # 0.3 10*3/uL (0.0-0.87); Eosinophils % 3.6 % (0.00-10.9); Hematocrit 32.2 VOL% (35.7-47.0); Hemoglobin 10.2 GM/DL (12.0-16.0); Immature Granulocytes % 1.1 %; Immature Granulocytes Absolute 0.08 #; Lymphocytes # 0.8 10*3/uL (1.4-4.0); Lymphocytes % 10.7 % (21.3-54.2); Mean Corpuscular HGB Conc 31.7 GM/DL (32-36); Mean Corpuscular Volume 92.8 FL (87-102); Monocytes % 7.8 % (1.7-12.7); Neutrophils % 76.3 % (38.7-73.9); Platelet Count 129 T/CUMM (130-400); Red Blood Count 3.47 MC/CUMM (3.8-5.5); Red Cell Distribution Width 16.4 % (9.3-17.3); White Blood Count 7.3 T/CUMM (4-12)
[2021-04-10 05:04] LABS: Hypochromasia 1+; Microcytosis 1+; Platelet Estimate Adequate; Polychromasia Slight
[2021-04-10 05:07] LABS: Calcium 8.1 MG/DL (8.5-10.1); Osmolality,Calculated 292.3 MOS/KG (273-304); Potassium 3.5 MMOL/L (3.5-5.1)
[2021-04-10] MEDS: DEXT 5% NACL 0.45% KCL 20 MEQ 20 MEQ/1,000 ML BAG IV SCH (05:08)
[2021-04-10] MEDS: POTASSIUM CHLORIDE RIDER 20 MEQ/100 ML PREMIX IV PRN (06:04)
[2021-04-10] MEDS: METOPROLOL TARTRATE 5 MG/5 ML VIAL IV SCH ×3 (06:04→17:35)
[2021-04-10] MEDS: GABAPENTIN 400 MG CAPSULE PO SCH ×3 (08:16→22:46)
[2021-04-10] MEDS: cefTRIAXone 1,000 MG in SODIUM CHLORIDE 0.9% 100 ML IV SCH (08:26)
[2021-04-10] MEDS: POTASSIUM CHLORIDE RIDER 10 MEQ/100 ML PREMIX IV PRN (08:26)
[2021-04-10] MEDS: PANTOPRAZOLE 40 MG VIAL IV SCH ×2 (08:27→20:21)
[2021-04-10] MEDS: BUDESONIDE/FORMOTEROL 160-4.5 INHALER 6 GM INH SCH ×2 (08:28→20:26)
[2021-04-10] MEDS: FUROSEMIDE 40 MG/4 ML VIAL IV SCH (09:07)
[2021-04-10] MEDS: VENLAFAXINE 100 MG TABLET PO SCH (20:51)
[2021-04-10] MEDS: MONTELUKAST 10 MG TABLET PO SCH (22:46)
[2021-04-11] MEDS: METOPROLOL TARTRATE 5 MG/5 ML VIAL IV SCH ×4 (01:16→17:46)
[2021-04-11 05:21] LABS: Basophils # 0.1 10*3/uL (0.0-0.2); Basophils % 0.8 % (0.0-0.8); Eosinophils # 0.5 10*3/uL (0.0-0.87); Hematocrit 32.8 VOL% (35.7-47.0); Hemoglobin 9.9 GM/DL (12.0-16.0); Immature Granulocytes % 0.8 %; Immature Granulocytes Absolute 0.05 #; Lymphocytes # 1.4 10*3/uL (1.4-4.0); Mean Corpuscular HGB Conc 30.2 GM/DL (32-36); Mean Corpuscular Volume 96.2 FL (87-102); Mean Platelet Volume 11.8 FL (9.6-12.0); Monocytes % 7.8 % (1.7-12.7); Neutrophils % 60.6 % (38.7-73.9); Platelet Count 157 T/CUMM (130-400); Red Blood Count 3.41 MC/CUMM (3.8-5.5); Red Cell Distribution Width 15.9 % (9.3-17.3); White Blood Count 6.1 T/CUMM (4-12)
[2021-04-11 05:51] LABS: Calcium 8.3 MG/DL (8.5-10.1); Osmolality,Calculated 282.8 MOS/KG (273-304); Potassium 3.3 MMOL/L (3.5-5.1)
[2021-04-11] MEDS: PROMETHAZINE 25 MG/1 ML VIAL IM SCH ×4 (05:56→22:46)
[2021-04-11] MEDS: PANTOPRAZOLE 40 MG VIAL IV SCH ×2 (09:38→22:45)
[2021-04-11] MEDS: FUROSEMIDE 40 MG/4 ML VIAL IV SCH (09:38)
[2021-04-11] MEDS: cefTRIAXone 1,000 MG in SODIUM CHLORIDE 0.9% 100 ML IV SCH (09:39)
[2021-04-11] MEDS: GABAPENTIN 400 MG CAPSULE PO SCH ×3 (09:39→22:45)
[2021-04-11] MEDS: HYDROmorphone 2 MG/1 ML VIAL IV PRN ×2 (09:39→14:40)
[2021-04-11] MEDS: BUDESONIDE/FORMOTEROL 160-4.5 INHALER 6 GM INH SCH ×2 (09:40→22:46)
[2021-04-11] MEDS: POTASSIUM CHLORIDE RIDER 20 MEQ/100 ML PREMIX IV PRN ×3 (10:59→18:10)
[2021-04-11] MEDS: MONTELUKAST 10 MG TABLET PO SCH (22:45)
[2021-04-11] MEDS: VENLAFAXINE 100 MG TABLET PO SCH (22:46)
[2021-04-12] MEDS: METOPROLOL TARTRATE 5 MG/5 ML VIAL IV SCH ×3 (01:32→14:03)
[2021-04-12] MEDS: PROMETHAZINE 25 MG/1 ML VIAL IM SCH ×2 (03:51→11:59)
[2021-04-12 05:54] LABS: Basophils % 0.8 % (0.0-0.8); Eosinophils # 0.4 10*3/uL (0.0-0.87); Eosinophils % 7.6 % (0.00-10.9); Immature Granulocytes Absolute 0.05 #; Lymphocytes # 1.1 10*3/uL (1.4-4.0); Lymphocytes % 23.3 % (21.3-54.2); Mean Corpuscular HGB Conc 31.3 GM/DL (32-36); Mean Platelet Volume 12.8 FL (9.6-12.0); Neutrophils % 58.3 % (38.7-73.9); Platelet Count 178 T/CUMM (130-400); Red Blood Count 3.37 MC/CUMM (3.8-5.5); Red Cell Distribution Width 15.5 % (9.3-17.3); White Blood Count 4.9 T/CUMM (4-12)
[2021-04-12 06:38] LABS: Potassium 3.4 MMOL/L (3.5-5.1)
[2021-04-12] MEDS: cefTRIAXone 1,000 MG in SODIUM CHLORIDE 0.9% 100 ML IV SCH (09:49)
[2021-04-12] MEDS: GABAPENTIN 400 MG CAPSULE PO SCH ×3 (09:51→23:56)
[2021-04-12] MEDS: PANTOPRAZOLE 40 MG VIAL IV SCH ×2 (09:54→23:55)
[2021-04-12] MEDS: fentaNYL 100 MCG/HR PATCH TRANSDERM SCH (09:58)
[2021-04-12] MEDS: BUDESONIDE/FORMOTEROL 160-4.5 INHALER 6 GM INH SCH (09:59)
[2021-04-12] MEDS: HYDROmorphone 2 MG/1 ML VIAL IV PRN ×2 (11:56→17:52)
[2021-04-12] MEDS ORDERED: PROMETHAZINE 25 MG/1 ML VIAL IM PRN (12:54)
[2021-04-12] MEDS ORDERED: POTASSIUM CHLORIDE 20 MEQ TABLET PO ONE (14:12)
[2021-04-12] MEDS: MONTELUKAST 10 MG TABLET PO SCH (23:56)
[2021-04-13] MEDS: carvediloL 6.25 MG TABLET PO SCH ×3 (00:06→19:53)
[2021-04-13] MEDS: VENLAFAXINE 100 MG TABLET PO SCH ×2 (00:06→21:16)
[2021-04-13] MEDS: BUDESONIDE/FORMOTEROL 160-4.5 INHALER 6 GM INH SCH ×3 (00:08→21:02)
[2021-04-13] MEDS: HYDROmorphone 2 MG/1 ML VIAL IV PRN ×3 (00:26→19:53)
[2021-04-13 06:07] LABS: Basophils # 0.1 10*3/uL (0.0-0.2); Basophils % 1.3 % (0.0-0.8); Eosinophils # 0.4 10*3/uL (0.0-0.87); Eosinophils % 7.8 % (0.00-10.9); Hematocrit 30.9 VOL% (35.7-47.0); Hemoglobin 9.5 GM/DL (12.0-16.0); Immature Granulocytes % 0.8 %; Immature Granulocytes Absolute 0.04 #; Lymphocytes # 1.3 10*3/uL (1.4-4.0); Lymphocytes % 26.9 % (21.3-54.2); Mean Corpuscular HGB Conc 30.7 GM/DL (32-36); Mean Platelet Volume 12.6 FL (9.6-12.0); Monocytes % 10.3 % (1.7-12.7); Neutrophils % 52.9 % (38.7-73.9); Platelet Count 185 T/CUMM (130-400); Red Blood Count 3.22 MC/CUMM (3.8-5.5); Red Cell Distribution Width 15.2 % (9.3-17.3); White Blood Count 4.8 T/CUMM (4-12)
[2021-04-13 06:37] LABS: Calcium 8.1 MG/DL (8.5-10.1); Osmolality,Calculated 279.1 MOS/KG (273-304); Potassium 3.7 MMOL/L (3.5-5.1)
[2021-04-13 06:54] LABS: Eosinophils 6 % (0-10); Lymphocytes 27 % (20-55); Platelet Estimate Adequate; Segmented Neutrophils 61 % (50-85); Total Cells Counted 100
[2021-04-13 06:55] LABS: Hypochromasia 1+; Microcytosis 1+
[2021-04-13] MEDS: cefTRIAXone 1,000 MG in SODIUM CHLORIDE 0.9% 100 ML IV SCH (11:16)
[2021-04-13] MEDS: GABAPENTIN 400 MG CAPSULE PO SCH ×3 (11:20→21:00)
[2021-04-13] MEDS: PANTOPRAZOLE 40 MG VIAL IV SCH ×2 (11:21→20:55)
[2021-04-13] MEDS: POLYETHYLENE GLYCOL POWDER 17 GM PACK PO SCH (19:53)
[2021-04-13] MEDS: CHOLECALCIFEROL 1,000 UNIT TABLET PO SCH (19:53)
[2021-04-13] MEDS: MONTELUKAST 10 MG TABLET PO SCH (20:55)
[2021-04-14] MEDS: HYDROmorphone 2 MG/1 ML VIAL IV PRN ×4 (02:37→18:41)
[2021-04-14 04:57] LABS: Basophils % 0.8 % (0.0-0.8); Eosinophils # 0.3 10*3/uL (0.0-0.87); Eosinophils % 6.1 % (0.00-10.9); Hematocrit 29.8 VOL% (35.7-47.0); Hemoglobin 9.4 GM/DL (12.0-16.0); Immature Granulocytes % 0.8 %; Immature Granulocytes Absolute 0.04 #; Lymphocytes # 1.3 10*3/uL (1.4-4.0); Lymphocytes % 25.9 % (21.3-54.2); Mean Corpuscular HGB Conc 31.5 GM/DL (32-36); Mean Corpuscular Volume 93.4 FL (87-102); Mean Platelet Volume 12.6 FL (9.6-12.0); Monocytes % 9.9 % (1.7-12.7); Neutrophils % 56.5 % (38.7-73.9); Platelet Count 204 T/CUMM (130-400); Red Blood Count 3.19 MC/CUMM (3.8-5.5)
[2021-04-14 05:19] LABS: % Iron Saturation 20.5 % (18-50)
[2021-04-14 05:21] LABS: Calcium 8.4 MG/DL (8.5-10.1); Osmolality,Calculated 273.5 MOS/KG (273-304); Potassium 3.7 MMOL/L (3.5-5.1)
[2021-04-14 05:22] LABS: Folate 5.45 NG/ML (5.38-24.0); Vitamin B12 473 PG/ML (211-911)
[2021-04-14 07:14] LABS: Sedimentation Rate-Westergren 101 MM/HR (0-30)
[2021-04-14] MEDS: GABAPENTIN 400 MG CAPSULE PO SCH ×3 (10:28→21:20)
[2021-04-14] MEDS: carvediloL 6.25 MG TABLET PO SCH ×2 (10:28→16:17)
[2021-04-14] MEDS: CHOLECALCIFEROL 1,000 UNIT TABLET PO SCH (10:28)
[2021-04-14 10:29] LABS: Hemoglobin A1 (Alkaline) 97.5 % (96.5-98.5); Hemoglobin A2 (Alkaline) 2.5 % (1.5-3.5)
[2021-04-14] MEDS: POLYETHYLENE GLYCOL POWDER 17 GM PACK PO SCH (10:29)
[2021-04-14] MEDS: PANTOPRAZOLE 40 MG VIAL IV SCH ×2 (10:29→21:18)
[2021-04-14] MEDS: cefTRIAXone 1,000 MG in SODIUM CHLORIDE 0.9% 100 ML IV SCH (10:32)
[2021-04-14] MEDS: BUDESONIDE/FORMOTEROL 160-4.5 INHALER 6 GM INH SCH ×2 (10:32→21:29)
[2021-04-14] MEDS ORDERED: ERGOCALCIFEROL 50,000 UNIT CAPSULE PO ONE (15:34)
[2021-04-14] MEDS: MONTELUKAST 10 MG TABLET PO SCH (21:19)
[2021-04-14] MEDS: VENLAFAXINE 100 MG TABLET PO SCH (22:21)
[2021-04-15] MEDS: HYDROmorphone 2 MG/1 ML VIAL IV PRN ×6 (03:16→21:47)
[2021-04-15 05:47] LABS: Basophils # 0.1 10*3/uL (0.0-0.2); Basophils % 1.3 % (0.0-0.8); Eosinophils # 0.2 10*3/uL (0.0-0.87); Eosinophils % 4.9 % (0.00-10.9); Hematocrit 29.5 VOL% (35.7-47.0); Hemoglobin 9.4 GM/DL (12.0-16.0); Immature Granulocytes % 0.8 %; Immature Granulocytes Absolute 0.04 #; Lymphocytes # 1.2 10*3/uL (1.4-4.0); Lymphocytes % 25.1 % (21.3-54.2); Mean Corpuscular HGB Conc 31.9 GM/DL (32-36); Mean Corpuscular Volume 93.4 FL (87-102); Mean Platelet Volume 13.2 FL (9.6-12.0); Monocytes % 9.7 % (1.7-12.7); Neutrophils % 58.2 % (38.7-73.9); Platelet Count 203 T/CUMM (130-400); Red Blood Count 3.16 MC/CUMM (3.8-5.5); Red Cell Distribution Width 15.1 % (9.3-17.3); White Blood Count 4.7 T/CUMM (4-12)
[2021-04-15 06:26] LABS: Calcium 8.3 MG/DL (8.5-10.1); Osmolality,Calculated 277.3 MOS/KG (273-304); Potassium 3.5 MMOL/L (3.5-5.1)
[2021-04-15] MEDS: fentaNYL 100 MCG/HR PATCH TRANSDERM SCH (08:29)
[2021-04-15] MEDS: PANTOPRAZOLE 40 MG VIAL IV SCH ×2 (08:29→21:48)
[2021-04-15] MEDS: cefTRIAXone 1,000 MG in SODIUM CHLORIDE 0.9% 100 ML IV SCH (08:29)
[2021-04-15] MEDS: CHOLECALCIFEROL 1,000 UNIT TABLET PO SCH (08:30)
[2021-04-15] MEDS: carvediloL 6.25 MG TABLET PO SCH ×2 (08:31→16:01)
[2021-04-15] MEDS: POLYETHYLENE GLYCOL POWDER 17 GM PACK PO SCH (08:31)
[2021-04-15] MEDS: GABAPENTIN 400 MG CAPSULE PO SCH ×3 (08:32→21:46)
[2021-04-15] MEDS: BUDESONIDE/FORMOTEROL 160-4.5 INHALER 6 GM INH SCH ×2 (08:32→21:50)
[2021-04-15] MEDS ORDERED: hydrOXYzine HCL 10 MG TABLET PO PRN (12:10)
[2021-04-15] MEDS ORDERED: ALUM/MAG/SIMETH/LIDO VISC 1:1 30 ML BOTTLE PO ONE (12:11)
[2021-04-15] MEDS ORDERED: VENLAFAXINE 75 MG TABLET PO ONE (12:12)
[2021-04-15] MEDS: ONDANSETRON 4 MG/2 ML VIAL IV PRN (14:14)
[2021-04-15 15:16] LABS: H pylori Specimen source STOOL; Helicobacter pylori Result Not Detected
[2021-04-15] MEDS: ATORVASTATIN 40 MG TABLET PO SCH (21:46)
[2021-04-15] MEDS: MONTELUKAST 10 MG TABLET PO SCH (21:46)
[2021-04-16] MEDS: HYDROmorphone 2 MG/1 ML VIAL IV PRN ×5 (00:41→21:15)
[2021-04-16] MEDS: ONDANSETRON 4 MG/2 ML VIAL IV PRN ×2 (00:42→21:14)
[2021-04-16 05:43] LABS: Basophils % 0.7 % (0.0-0.8); Eosinophils # 0.3 10*3/uL (0.0-0.87); Eosinophils % 5.5 % (0.00-10.9); Hematocrit 28.7 VOL% (35.7-47.0); Hemoglobin 8.6 GM/DL (12.0-16.0); Immature Granulocytes % 0.8 %; Immature Granulocytes Absolute 0.05 #; Lymphocytes # 1.3 10*3/uL (1.4-4.0); Lymphocytes % 22.3 % (21.3-54.2); Mean Corpuscular Volume 96.6 FL (87-102); Mean Platelet Volume 12.8 FL (9.6-12.0); Monocytes % 10.5 % (1.7-12.7); Neutrophils % 60.2 % (38.7-73.9); Platelet Count 224 T/CUMM (130-400); Red Blood Count 2.97 MC/CUMM (3.8-5.5); Red Cell Distribution Width 15.4 % (9.3-17.3)
[2021-04-16 05:51] LABS: Calcium 8.2 MG/DL (8.5-10.1); Osmolality,Calculated 273.5 MOS/KG (273-304)
[2021-04-16 06:08] LABS: Hypochromasia 1+; Microcytosis 1+
[2021-04-16 06:09] LABS: Platelet Estimate Normal; Polychromasia Slight; Rouleau Slight
[2021-04-16] MEDS: carvediloL 6.25 MG TABLET PO SCH ×2 (10:06→17:23)
[2021-04-16] MEDS: CHOLECALCIFEROL 1,000 UNIT TABLET PO SCH (10:06)
[2021-04-16] MEDS: GABAPENTIN 400 MG CAPSULE PO SCH ×3 (10:06→21:13)
[2021-04-16] MEDS: PANTOPRAZOLE 40 MG VIAL IV SCH ×2 (10:07→21:13)
[2021-04-16] MEDS: POLYETHYLENE GLYCOL POWDER 17 GM PACK PO SCH (10:08)
[2021-04-16] MEDS: cefTRIAXone 1,000 MG in SODIUM CHLORIDE 0.9% 100 ML IV SCH (10:09)
[2021-04-16] MEDS: BUDESONIDE/FORMOTEROL 160-4.5 INHALER 6 GM INH SCH ×2 (10:12→21:15)
[2021-04-16 10:21] LABS: Hematocrit 28.8 VOL% (35.7-47.0); Hemoglobin 8.8 GM/DL (12.0-16.0)
[2021-04-16 16:01] LABS: Hematocrit 28.7 VOL% (35.7-47.0); Hemoglobin 8.5 GM/DL (12.0-16.0)
[2021-04-16] MEDS: ATORVASTATIN 40 MG TABLET PO SCH (21:13)
[2021-04-16] MEDS: VENLAFAXINE 75 MG TABLET PO SCH (21:13)
[2021-04-16] MEDS: MONTELUKAST 10 MG TABLET PO SCH (21:13)
[2021-04-17 07:42] LABS: Basophils # 0.1 10*3/uL (0.0-0.2); Basophils % 0.9 % (0.0-0.8); Eosinophils # 0.2 10*3/uL (0.0-0.87); Eosinophils % 2.7 % (0.00-10.9); Hematocrit 27.9 VOL% (35.7-47.0); Hemoglobin 8.4 GM/DL (12.0-16.0); Immature Granulocytes % 1.6 %; Immature Granulocytes Absolute 0.11 #; Lymphocytes # 1.3 10*3/uL (1.4-4.0); Lymphocytes % 18.1 % (21.3-54.2); Mean Corpuscular HGB Conc 30.1 GM/DL (32-36); Mean Corpuscular Volume 96.9 FL (87-102); Monocytes % 8.8 % (1.7-12.7); NRBC # 0.02 10*3/uL; Neutrophils % 67.9 % (38.7-73.9); Platelet Count 242 T/CUMM (130-400); Red Blood Count 2.88 MC/CUMM (3.8-5.5); Red Cell Distribution Width 15.5 % (9.3-17.3)
[2021-04-17 07:58] LABS: Calcium 8.2 MG/DL (8.5-10.1); Osmolality,Calculated 267.1 MOS/KG (273-304); Potassium 4.4 MMOL/L (3.5-5.1)
[2021-04-17] MEDS: ONDANSETRON 4 MG/2 ML VIAL IV PRN (08:38)
[2021-04-17] MEDS: GABAPENTIN 400 MG CAPSULE PO SCH ×3 (08:42→20:17)
[2021-04-17] MEDS: PANTOPRAZOLE 40 MG VIAL IV SCH (08:42)
[2021-04-17] MEDS: carvediloL 6.25 MG TABLET PO SCH ×2 (08:42→17:04)
[2021-04-17] MEDS: CHOLECALCIFEROL 1,000 UNIT TABLET PO SCH (08:42)
[2021-04-17] MEDS: POLYETHYLENE GLYCOL POWDER 17 GM PACK PO SCH (08:42)
[2021-04-17] MEDS: BUDESONIDE/FORMOTEROL 160-4.5 INHALER 6 GM INH SCH ×2 (08:43→21:11)
[2021-04-17 09:46] LABS: Hematocrit 26.9 VOL% (35.7-47.0); Hemoglobin 8.1 GM/DL (12.0-16.0)
[2021-04-17] MEDS ORDERED: ACETAMINOPHEN 325 MG TABLET PO ONE (09:46)
[2021-04-17] MEDS ORDERED: AZITHROMYCIN INJ 500 MG in SODIUM CHLORIDE 0.9% 250 ML IV ONE (15:21)
[2021-04-17] MEDS ORDERED: cefTRIAXone 1,000 MG in SODIUM CHLORIDE 0.9% 100 ML IV ONE (15:21)
[2021-04-17] MEDS ORDERED: ACETAMINOPHEN 325 MG TABLET PO PRN (15:34)
[2021-04-17] MEDS: ATORVASTATIN 40 MG TABLET PO SCH (20:17)
[2021-04-17] MEDS: VENLAFAXINE 75 MG TABLET PO SCH (20:17)
[2021-04-17] MEDS: MONTELUKAST 10 MG TABLET PO SCH (20:17)
[2021-04-17] MEDS: PANTOPRAZOLE 40 MG TABLET PO SCH (21:11)
[2021-04-18 05:29] LABS: Basophils # 0.1 10*3/uL (0.0-0.2); Basophils % 1.4 % (0.0-0.8); Eosinophils # 0.3 10*3/uL (0.0-0.87); Eosinophils % 4.6 % (0.00-10.9); Hematocrit 27.7 VOL% (35.7-47.0); Hemoglobin 8.6 GM/DL (12.0-16.0); Immature Granulocytes % 1.4 %; Immature Granulocytes Absolute 0.08 #; Lymphocytes # 1.5 10*3/uL (1.4-4.0); Lymphocytes % 26.4 % (21.3-54.2); Mean Corpuscular Volume 95.5 FL (87-102); Mean Platelet Volume 12.3 FL (9.6-12.0); Monocytes % 9.1 % (1.7-12.7); Neutrophils % 57.1 % (38.7-73.9); Platelet Count 221 T/CUMM (130-400); Red Cell Distribution Width 15.3 % (9.3-17.3); White Blood Count 5.8 T/CUMM (4-12)
[2021-04-18 05:43] LABS: Calcium 8.5 MG/DL (8.5-10.1); Osmolality,Calculated 267.1 MOS/KG (273-304); Potassium 4.3 MMOL/L (3.5-5.1)
[2021-04-18 08:08] VITALS: BP 136/57
[2021-04-18] MEDS: carvediloL 6.25 MG TABLET PO SCH (08:43)
[2021-04-18] MEDS: GABAPENTIN 400 MG CAPSULE PO SCH (08:43)
[2021-04-18] MEDS: CHOLECALCIFEROL 1,000 UNIT TABLET PO SCH (08:43)
[2021-04-18] MEDS: PANTOPRAZOLE 40 MG TABLET PO SCH (08:43)
[2021-04-18] MEDS: POLYETHYLENE GLYCOL POWDER 17 GM PACK PO SCH (08:44)
[2021-04-18] MEDS: BUDESONIDE/FORMOTEROL 160-4.5 INHALER 6 GM INH SCH (08:56)
[2021-04-18] MEDS ORDERED: FLUCONAZOLE 150 MG TABLET PO ONE ×2 (09:11→09:16)
== END 2021-04-18 12:56 | disposition home health service (06) | DRG 326 ==
LOC: EDUNIT# → EDBD → N.ED 20:49 → SUATTDRO 04-02 03:08 → N.EDINP 04-02 03:08 → N.TELEN 04-02 03:24 → N.ICU 04-05 04:17 → N.CVR 04-07 17:50 → N.5E 04-10 09:42
PROVIDERS: ADMIT Internal Medicine; ATTEND Internal Medicine
PROC: IRAGMES (2021-04-05 20:35)